=== PATIENT | female | born 1975 | race Caucasian/White ===

== ENCOUNTER 2025-08-13 08:19 | Emergency (ER) | payer OTHER, SELFPAY ==
[2025-08-13 08:42] VITALS: BP 104/55; PULSE 65; RESP 18; TEMP 36.4; O2SAT 100
--- NOTE | 2025-08-13 08:47 | ECG_ITS ---
Test Date: 2025-08-13 09:01:53 Measurements Intervals [place] Rate: 61 P: 42 ME: 126 QRS: 63 QRSD: 95 T: 50 QT: 433 QTc: 439 Interpretive Statements SINUS RHYTHM MODERATE T-WAVE ABNORMALITY, CONSIDER ANTERIOR ISCHEMIA BASELINE WANDER- III, AVF ABNORMAL ECG No previous ECG available for comparison Electronically Signed On 08-13-2025 09:59:35 CDT by Harmeet Tello D.O.
--- NOTE | 2025-08-13 09:01 | ED_ITS ---
HPI - Dizziness General Chief Complaint: Dizziness Stated Complaint: dizziness,fatigue,nausea Time Seen by Provider: 08/13/25 09:15 Source: patient and RN notes reviewed Mode of arrival: ambulatory Limitations: no limitations History of Present Illness HPI Narrative: 49-year-old female presents Express Care complaining of dizziness started this morning. Patient's symptoms started approximately 6 hours ago. Patient says she woke up to use the restroom when she knows she is very dizzy reporting she felt drunk and that the room was spinning. Patient denies any falls or injuries. Patient said she laid back down after taking some Sudafed without any relief. Patient said she had a previous episode years ago and is subsided on its own. Patient also reports a mild headache along nausea, with photophobia. Patient denies any chest pain, breathing problems, slurred speech, facial drooping, focal weakness, vomiting, diarrhea, abdominal pain, fevers, body aches, chills, upper respiratory symptoms, cough, or any other symptoms. Patient denies any significant past medical history are she states she does not see a doctor. Patient says she is a smoker. Related Data Allergies Allergy/AdvReac Type Severity Reaction Status Date / Time No Known Drug Allergies Allergy none Verified 08/13/25 10:01 Review of Systems Review of Systems: CONSTITUTIONAL: Denies fever, chills, or sweats. EYES: Denies visual changes, redness, or discharge. Positive for photophobia. ENT: Denies rhinorrhea, congestion, sore throat, or otalgia. CARDIOVASCULAR: Denies chest pain, palpitations, lightheadedness, orthopnea, or edema. Positive for dizziness. RESPIRATORY: Denies cough, difficulty breathing, or dyspnea. GASTROINTESTINAL: Denies abdominal pain, nausea, vomiting, or diarrhea. GENITOURINARY: Denies dysuria or hematuria. SKIN: Denies rash or itching. MUSCULOSKELETAL: Denies back pain, joint pain, or myalgia. NEUROLOGIC: Positive for headaches. Negative for loss of consciousness, seizures, focal weakness, slurred speech, facial droop, Numbness, or weakness. PSYCHIATRIC: Denies anxiety or depression. All other systems reviewed are negative, except as documented in HPI. [facility] Past Medical History Medical History (Updated 08/13/25 @ 16:21 by Basil Canales III, DO) No active medical problems Surgical History Surgical History (Updated 08/13/25 @ 11:51 by Mayela Farmer PA-C) H/O tubal ligation Social History Social History (Updated 08/13/25 @ 11:52 by Mayela Farmer PA-C) Smoking status: Current every day smoker Comments At the time of my signature, I reviewed and agree with the nursing past medical, surgical, social, and family history. There is no relevant family history pertinent to the patient complaint. Exam Narrative: GENERAL: This is a well-nourished, well-developed adult, in no apparent distress. They are non ill-appearing, nontoxic appearing. HEAD: normocephalic, atraumatic. EYES: Sclera clear/white. Conjunctiva normal. Vision is grossly intact. Extraocular movements intact. Pupils PERRLA. Vertical nystagmus present. EARS: External ears normal, auditory canals clear and without drainage, TMs normal without perforation. Hearing grossly intact. NOSE: External nose normal with no obvious nasal discharge, nasal turbinates without redness, no rhinorrhea. THROAT: Mucous membranes moist, posterior pharynx clear, without erythema or swelling. Uvula midline. NECK: Neck supple, non-tender without lymphadenopathy, masses or thyromegaly. CARDIOVASCULAR: Regular rate and rhythm without murmurs, gallops, or rubs. Normal S1-S2. RESPIRATORY: Clear to auscultation. Breath sounds equal bilaterally. No wheezes, rales, or rhonchi. SKIN: warm, Dry, intact with no suspicious lesions or rash, good texture and turgor. NEURO: awake, alert, and oriented to person, place and time. There were no obvious focal neurologic abnormalities. Cranial nerve 2-12 grossly intact. No pronator drift. No limb ataxia. No inattention or extinction. Arm strength 5/5 equal bilaterally. Spring Assembler strength 5/5 equal bilaterally. Leg strength 5/5 equal bilaterally. Normal dorsiflexion plantar flexion. Tongue is midline. No facial droop. Speech is clear. EXTREMITIES: No joint tenderness, effusion, or edema noted. BACK: Nontender without deformity. No CVA tenderness. Course Course Emergency Course: Portions of this record may have been created with voice recognition software Level of Care: Express Care Visit Vital Signs Vital signs: Vital Signs Temperature 97.5 F L 08/13/25 08:42 Pulse Rate 65 08/13/25 08:42 Respiratory Rate 18 08/13/25 08:42 Blood Pressure 104/55 L 08/13/25 08:42 Pulse Oximetry 100 08/13/25 08:42 Oxygen Delivery Room Air 08/13/25 08:42 Temperature 97.5 F L 08/13/25 08:42 Pulse Rate 65 08/13/25 08:42 Respiratory Rate 18 08/13/25 08:42 Blood Pressure 104/55 L 08/13/25 08:42 Pulse Oximetry 100 08/13/25 08:42 Oxygen Delivery Room Air 08/13/25 08:42 Reviewed Transfer Transfered to: [facility] Transportation: Other (Private vehicle, she declined EMS.) Transfer rationale: Dizziness, patient requires higher level care. Accepting physician: Mayela Farmer PA-C MDM - Dizziness MDM Narrative Medical decision making narrative: EKG sinus rhythm with T-wave abnormalities in V4 and V5. No ST elevation depression. EKG is abnormal. Patient is having no chest pain. Upon exam patient does have vertical nystagmus with eye tracking. Dizziness is elicited with position changes well. Patient has a headache and photophobia. Symptoms not appear to be vertigo. Patient does not see a doctor, she is a smoker. Given patient's symptoms, it is recommend the patient seek a higher level care and proceed immediately to the emergency department. Patient is agreeable at [facility]. Called over to [facility] and spoke to Mayela Farmer PA-C who is aware this patient accepted the patient for transfer. Offered patient EMS and she declined. Patient says her boyfriend will take her to the hospital via private vehicle. Patient's vital signs hemodynamically stable, patient is nontoxic appearing, No apparent distress. Differential Diagnosis Differential diagnosis: Likely benign paroxysmal positional vertigo, cerebrovascular accident, acute vestibular neuronitis, transient cerebral ischemia and other (ACS) ECG Data EKG #1: Attestation: I personally reviewed and interpreted this ECG as follows: ECG completion date: 08/13/25 ECG completion time: 09:01 Prior ECG tracings: not available for review EKG Interpretation: normal rate, sinus rhythm, no ectopy, no ST changes, normal QRS, normal QT and other (t wave abnormality in v3, v4) Critical Care Time Critical Care Time Critical Care Time: No Discharge Plan Discharge Patient Disposition: Acute Care [facility] Patient Language: Welsh Prescriptions: No Action meclizine 25 mg tablet 25 mg PO TID PRN (Reason: dizziness) Qty: 30 0RF Follow-up/Referrals: PHYSICIAN,SUPPORT MERCHANDISER [Primary Care Provider, Internal Medicine] Time of Disposition: 09:36
== END 2025-08-13 09:41 | disposition short-term general hospital (02) ==
LOC: EXPCOLL 08:37
DX: R42 Dizziness and giddiness (principal); H53.149 Visual discomfort, unspecified; R53.83 Other fatigue; F17.200 Nicotine dependence, unspecified, uncomplicated
CPT/HCPCS: 93005; 99213; G0463

== ENCOUNTER 2025-08-13 09:59 | Emergency (ER) | payer OTHER, SELFPAY ==
--- NOTE | ~2025-08-13 | CT_ITS ---
CT HEAD NON-CONTRAST Clinical History: Dizziness Comparison: None Technique: Unenhanced axial images skull base to vertex Coronal, sagittal reformats CT images acquired with automatic exposure control for dose reduction DLP: 530 mGy-cm Findings: Sulci, ventricles: Unremarkable. No intracerebral hemorrhage. No evidence acute territorial infarct. No mass effect, midline shift. Bony calvarium intact. Visualized paranasal sinuses: Clear. Mastoid air cells: Clear. IMPRESSION: 1. No acute intracranial findings. Reviewed, dictated and finalized at location R.
[2025-08-13 11:19] VITALS: BP 115/59; PULSE 56; RESP 16; TEMP 36.2; O2SAT 100
--- OUTSIDE RECORDS SUMMARY | 2025-08-13 11:19 | XMS_ITS | Clinical Summary ---
[place] [facility] [place] [address] Address [address] [place] [id number] Care Team Providers Care Information Systems Architect Name Role Phone Claudette Rivera NP Primary Care Provider [phone] Allergies No known active allergies Medications varenicline tartrate (CHANTIX) 1 mg tabletIndicatio ns:Smoking Cessation Take 0.5 tablets (0.5 mg total) by mouth daily for 3 days, THEN 0.5 tablets (0.5 mg total) 2 (two) times a day for 4 days, THEN 1 tablet (1 mg total) 2 (two) times a day. Take with full glass of water.. 60 tablet 1 07/24/2024 Active Active Problems Problem Noted Date Diagnosed Date Annual physical exam 01/09/2024 Assessment & Plan (01/09/2024 9:18 AM CDT): Pt is a 48-year-old female with no current health concerns. She reports she has not had a PCP since her son was born 21 years ago. Pt would like a referral to an OBGYN, an order for a mammogram, and an order for a colonoscopy. She had a telehealth visit during [facility] and had bloodwork drawn, but there was no follow-up visit and she does not have the results. Pt reports her sister has a genetic liver condition and is undergoing work-up for a liver transplant. -will order colonoscopy and mammogram -will order basic screening bloodwork -will provider referral to OBGYN Pt has a 20+ year history of smoking. She verbalizes a desire to quit smoking and is open to taking medication. -will order Chantix titration pack -educated pt on possible side effects Tobacco dependence due to cigarettes 01/09/2024 Assessment & Plan (01/09/2024 10:32 AM CDT): Pt is interested in smoking cessation. Discussed medication options including varenicline. Discussed potential SE's. Gave handout information on varenicline and how to use. I asked her to call me after 1 month of use with update and I can call in additional refills. Immunizations Immunization Administration Dates Next Due Influenza, Unspecified 01/09/2024(Deferr ed: Patient Refused),10/29/2022(Deferred: Patient Refused) MMR 06/17/1993 Surgical History Surgery Date Site/Laterality Comments TUBAL LIGATION Medical History Medical History Date Comments Smoking Family History Medical History Relation Name Comments Melanoma Father Diabetes Maternal Grandmother Melanoma Mother Breast cancer Mother's Sister Liver disease Sister Ovarian cancer Neg Hx Thyroid cancer Neg Hx Relation Name Status Comments Brother 1 Alive Brother 2 Father Alive Maternal Grandmother Mother Alive Mother's Sister Sister Alive Social History Tobacco Use Types Packs/Day Years Used Date Smoking Tobacco: Every Day Cigarettes Smokeless Tobacco: Never Tobacco Cessation:Ready to Q uit: Not Asked; Counseling Given: Not Answered AUDIT-C Answer Date Recorded Q1: How often do you have a drink containing alc ohol? 2-4 times a month 03/05/2024 Q2: How many drinks containi ng alcohol do you have on a typical day when you are drinking? 3 or 4 03/05/2024 Q3: How often do you have si x or more drinks on one occasion? Less than monthly 03/05/2024 PHQ-2 Answer Date Recorded PHQ-2 Total Score (If total score is 3 or more points, staff should administer the PHQ-9) 0 03/05/2024 Personal Safety Answer Date Recorded Getting School Help Needed Not on file 11/30 Comments Unknown Sex and Gender Information Value Date Recorded Sex Assigned at Not on file Legal Sex Female 8:57 PM [employer] Gender Identity Not on file Sexual Orientation Not on file Obstetrics History Para Term AB IAB SAB Ectopic Multiple Livin g Live Births 3 2 2 1 1 2 Date Outcome GA Total Labor Labor/2nd/3rd Weight Sex Type Anes PTL Alicia A1 A5 Name Clin Term M Vag-Spo nt Term M Vag-Spo nt IAB Last Filed Vital Signs Vital Sign Reading Time Taken Comments Blood Pressure 100/68 03/05/2024 2:53 PM CDT Pulse 87 01/09/2024 8:33 AM CDT Temperature 36.7 C (98.1 F) 01/09/2024 8:33 AM CDT Respiratory Rate - - Oxygen Saturation 98% 01/09/2024 8:33 AM CDT Inhaled Oxygen Concentration - - Weight 62.6 kg (138 lb) 03/05/2024 2:53 PM CDT Height 149.9 cm (4' 11) 06/28/2024 2:20 PM CDT Body Mass Index 27.87 03/05/2024 2:53 PM CDT Plan of Treatment Health Maintenance Due Date Last Done Comments Hepatitis C Screening 1975 DTaP/Tdap/Td Vaccine (1 - Tdap) 1986 Hepatitis B Screening 1993 Pneumococcal vaccine <65 (1 of 2 - PCV) 1994 Cervical Cancer Screening 03/05/2025 03/05/2024 Depression Screening 03/05/2025 03/05/2024, 01/09/20 24 Regular Well Visit/Exam 18-64 03/05/2025 03/05/2024, 01/09/2024 Influenza Vaccine (#1) 2025 Breast Cancer Screening-Mammogram 07/28/2025 024, 06/28/2024 Colon Cancer Screening-Colonoscopy 06/19/20342023 Procedures Procedure Name Priority Date/Time Associated Diagnosis Comments DIAGNOSTIC MAMMOGRAM BILATERAL W GARY Schedule Routine, Read Routine (OP Routine) 07/28/2024 3:00 PM CDT Abnormal mammogram HM COLONOSCOPY Routine 06/19/2024 9:45 AM CDT PAP AND HPV, REFLEX TO HPV GENOTYPES Routine 03/05/2024 3:48 PM CDT Encounter for well woman exam with routine gynecological exam from Last 3 Months or Most Recently Relevant to Health Maintenance Results * DIAGNOSTIC MAMMOGRAM BILATERAL W GARY (07/28/2024 3:00 PM CDT) Anatomical Region Laterality Modality Breast Bilateral Mammography 07/30/2024 3:57 PM CDT Impressions 07/30/2024 3:57 PM CDT No mammographic or sonographic findings to suggest malignancy. OVERALL FINAL ASSESSMENT: BI-RADS Category 2: Benign. RECOMMENDATION: Screening mammography as per ACR guidelines. The screening mammogram was June 28, and the next mammogram should BE approximately one year from that date. Electronically signed by: Melissa Knowles M.D. Narrative 07/30/2024 3:57 PM CDT EXAMINATION: BILATERAL DIGITAL DIAGNOSTIC MAMMOGRAM INCLUDING CAD AND BILATERAL DIGITAL BREAST TOMOSYNTHESIS; RIGHT BREAST SONOGRAM HISTORY: Additional imaging COMPARISON: June 28 TECHNIQUE: Full field digital mammographic views of BOTH breasts were performed, including computer aided detection (CAD) and BILATERAL digital breast tomosynthesis (DBT). Directed ultrasound evaluation of the RIGHT breast was performed. BREAST PARENCHYMAL COMPOSITION: The breasts are heterogeneously dense, which may obscure small masses. MAMMOGRAM FINDINGS: Calcifications in question on both sides are considered benign. No suspicious calcifications or suspicious masses are seen. There is no suspicious architectural distortion or skin thickening. SONOGRAM FINDINGS: As precautionary measure, sonography was performed through the lateral right breast. There is a small simple cyst at 11-12 o'clock. There is a benign-appearing lymph node at 9:00. No suspicious sonographic findings are seen. Claudette Rivera NP IMG MAMMO PROCEDURES Final Re sult * HM COLONOSCOPY (06/19/2024 9:45 AM CDT) Historical Provider HEALTH MAINTENANCE Final Result * (ABNORMAL) Pap and HPV, reflex to HPV Genotypes (03/05/2024 3:48 PM CDT) Clinical indication Comment [facility] - 01 Comment:NEGATIVE FOR INTRAEP ITHELIAL LESION OR MALIGNANCY. Specimen adequacy: Comment [facility] - 01 Comment: Satisfactory for evaluation. Endocervical and/or squamous metaplastic cells (endocervical component) are present. Clinician provided ICD10 Comment [facility] - 01 Comment:Z01.419 Performed by Comment [facility] - 01 Comment:Darrius Tinoco, Cyto technologist (ASCP) . . [facility] - 01 Note: Comment [facility] - 01 Comment: The Pap smear is a screening test designed to aid in the detection of premalignant and malignant conditions of the uterine cervix. It is not a diagnostic procedure and should not be used as the sole means of detecting cervical cancer. Both false-positive and false-negative reports do occur. Test methodology Comment [facility] - 01 Comment: This liquid based ThinPrep(R) pap test was screened with the use of an image guided system. HPV Aptima Positive(A ) Negative [facility] 02 Comment: This nucleic acid amplification test detects fourteen high-risk HPV types (16,18,31,33,35,39,45,51,52,56,58,59,66,68) without differentiation. HPV Genotype Reflex Comment [facility] - 01 Comment:Criteria met, see HP V Genotype results. Thin prep 03/05/2024 3:48 PM CDT 03/06/2024 Narrative [facility] - 03/12/2024 2:08 AM CDT Performed at: 01 - [facility] [id number] Reproducer: Christa Alvarez MD, Phone: [phone] Performed at: 02 - [facility] [id number] Reproducer: Christa Alvarez MD, Phone: [phone] Specimen Comment: No. of containers..01 ThinPrep Vial Nelly Jordan NP LAB CYTOLOGY ORDERABLES Final Re [facility] - 01 [facility] 02 from Last 3 Months or Most Recently Relevant to Health Maintenance Care Teams Information Systems Architect Relationship Specialty Start Date End Date Claudette Rivera NP [address] [facility] [address] [place] [address] PCP - General Family Medicine 04/09/25
--- OUTSIDE RECORDS SUMMARY | 2025-08-13 11:19 | XMS_ITS | Data Portability ---
Author Organization [facility], [id number] Address [address] [place] [address] Assessment No assessment recorded. Plan of Treatment Reminders Order Date Submit Date Provider Last Modified By Organization Details Last Modified Time Details Appointments ANNUAL- EST 15 2025 07:45A M FREDA MOORE WHNP Not available Not available Not available Lab surgica l patholo gy study 2024 025 BREE [facility] ([facility]), [address] , [address], [place], [address], 04/28/2025 15:07:18 pregnan cy test, urine 2024 025 [email or web address] [id number] [facility] [address], [address], [place], [address], 04/22/2025 11:28:47 CBC w/ auto diff 2024 025 [facility], [address], [place], [address], 03/25/2025 12:32:49 CMP, serum or plasma 2024 025 [employer] [employer] [facility], [address], [place], [address], 03/25/2025 12:32:49 lipid panel, serum 2024 025 [facility], [address], [address], [place], [address], 03/25/2025 12:32:50 HbA1c (hemogl obin A1c), blood 2024 025 [facility], [address], [address], [place], [address], 03/25/2025 12:32:50 vitamin B12, serum 2024 025 [facility], [address], [address], [place], [address], 03/25/2025 12:32:50 TSH, serum or plasma 2024 025 [facility] [employer] [facility], [address], [address], [place], [address], 03/25/2025 12:32:50 T4, free, serum 2024 025 [facility], [address], [address], [place], [address], 03/25/2025 12:32:50 vitamin D, 25-hydr oxy, total, serum 2024 025 [facility] [employer] [facility], [address], [address], [place], [address], 03/25/2025 12:32:50 pap, LB 2024 025 [facility] ([facility]), [address] , [address], [place], [address], 03/24/2025 17:02:52 HPV DNA, high-ri sk - Reflex to genotyp ing if HPV Detecte d 2024 025 [facility] ([facility]), [address] , [address], [place], [address], 03/24/2025 17:02:52 Referral None recorde d. Procedures None recorde d. Surgeries None recorde d. Imaging MAMMO, screeni ng, digital , bilater al 2024 025 [email or web address] Not available 04/02/2025 12:01:25 Medication Orders estradi ol 0.01% (0.1 mg/gram ) vaginal cream 2024 025 [facility], [address] [place], [place], [id number], 03/18/2025 12:08:53 estradi ol 0.01% (0.1 mg/gram ) vaginal cream 2024 025 [facility]67175, [address], [place], [id number], 03/18/2025 12:09:03 fluoxet ine 10 mg tablet 2024 025 [facility]49[facility], [address] [place], [place], [id number], 03/18/2025 12:08:54 Patient TargetsNo targets recorded. Patient Instructions Encounter Date Encounter Id Patient Instructions Last Modified By Organization Details Last Modified Time 04/22/2025 [id number] colposcopy: what to expect at home roxie Not available 04/22/2025 11:28:47 post colposcopy information [email or web address] Not available 04/22/2025 11:28:47 Reason for Referral None Reported. Results Created Date Observation Date Name Description Value Unit Range Abnormal Flag Note LastModifiedBy Organization Detail LastModifiedTime 03/18/2003/24/2025 PAP TEST THIN PREP Pap test thin prep ATYPIC AL SQUAMO US CELLS OF UNDETE RMINED SIGNIF ICANCE abnormal ACCES JULIANNE #: [id number] Sourc e: Cervi bushra/E ndoce rvica l LMP: 2020 Date Taken : 03/18 Speci men Type: ThinP rep Vial Date Repor daniel: 2024 Clini bushra Data: Last Pap: nl, HPV + () Cytot ech: Rosana Doyle, CT( CP) Heriberto lea M.D. elect ricci chu selena d 2024 at 2:34 PM Speci men Adequ acy: Satis facto ry for evalu ation Endoc ervic al/tr ansfo rmati on zone compo nent prese nt Gener al Categ oriza tion: EPITH ELIAL CELL ABNOR MALIT Y: SEE INTER PRETA TION/ RESUL T Inter preta tion/ Resul t: ATYPI BUSHRA SQUAM OUS CELLS OF UNDET ERMIN ED SIGNI FICAN CE This speci men has been trudy zed by the ThinP rep Imagi ng Syste m, an inter activ e compu ter syste m which fernando ts the lab in the scree sandy of ThinP rep Pap Test slide sVannessa abreu imagi ng, the slide was revie wed by a Cytot echno logis t and/o r Patho logis t. D N A A S S A Y S R E P O R T TEST NAME RESUL TS ----- ---- ----- -- HPV High Risk Scree n (TMA) ThinP rep Vial The human papil lomav irus (HPV) High Risk Scree n is an FDA-a pprov ed in-vi tro ampli fied nucle ic acid test for the quali tativ e detec tion of E6/E7 viral mRNA. Resul ts shoul d be corre lated with patie nt prese ntati on, histo ry, cervi bushra cytol ogy and other clini bushra and labor atory findi ngs. See https ://ww [employer]/s ites/ deftello lt/fi les/2 018-0 3/AW- 50511 _002_ 01.pd f for furth er infor matio n. Test perfo rmed by [facility] d/b/a PathG roup, [address], [place] [address] , Rani Aleman ra, DO, [facility], CLIA[facility] [id number] HPV High Risk *HPV DETEC DANIEL (TYPE S 16, 18, 31, 33, 35, 39, 45, 51, 52, 56, 58, 59, 66, 68) *HPV: The human papil lomav irus (HPV) High Risk Kimi nash is an FDA-a pprov ed in-vi tro ampli fied nucle ic acid test for the quali tativ e detec tion of E6/E7 viral mRNA. [facility] selvin vazquez be corre lated with giacomo slaughter prese ntati on, histo ry, cervi bushra cytol ogy and other clini bushra and labor atory findi ngs. See https ://[facility]/s ites/ deftello lt/fi les/2 018-0 3/AW- 12474 _002_ 01.pd f for julian rosalinda larsonr abner n. Test perfo rmed by [facility] Lites[facility]ite d/b/a Path rou, [address], [place] [address] , Rani Aleman ra, DO, [facility]or[facility], CLIA# [id number] End of Repor t Techn ical servi marielena provi ded by [facility] iatClone Patho Litesprite, d/b/a PathTVA Medical rou, [address] [place] [address] Shazia sigala MD, Labor ator [facility]. Case revie wed and diagn osis rende red at [facility] iatClone Patho Litesprite, d/b/a PathG rou, [address], [facility] [place] [address] Angel Pastor MD, [facility]orThe [facility] Foundation [facility]. CONFI DENTI AL Not Available [facility] ([facility]) [address], [place], [address], 03/24/2025 17:02:52 03/18/20 25 03/20/2025 HPV HIGH RISK SCREE N (TMA) HPV high risk DETECT ED abnormal Not Available [facility]) [address], [place], [address], 03/24/2025 17:02:52 04/22/20 25 04/28/2025 SURGI BUSHRA PATHO LOGY surgical pathology View Report ACCES JULIANNE #: [id number] Patie nt Name: CRISTIANA CROCKETT Age-S ex-DO B: 49y F [birth year] Proce dure Date: 04/22 32 Acces julianne Date: 2024 Pt Acct# : Repor t Date: 025 Locat ion: OFFIC E Physi prakash( s): Rosana juan, RECYCLABLE MATERIALS SORTER P A T H O L O G Y R E P O R T DIAGN OSIS: 1. Cervi x, 9-o'c lock, biops y: Fragm ents of squam ous mucos a showi ng infla mmati on and react noa schneider es. No intra epith elial lesio n or malig timur ident ified . 2. Cervi x, 1-o'c lock, biops y: Fragm ents of squam ous epith elium showi ng mild infla mmati on and react noa schneider es. No intra epith elial lesio n or malig timur ident ified . 3. Endoc ervix , curet tage: Mucus with fragm ents of squam ous and endoc ervic al epith elium . No intra epith elial lesio n or malig timur ident ified . Heriberto lea MD elect ricci vazquez 04/28 02:04 PM Gross Descr iptio n: Cristiana Crockett. 1. Cervi bushra biops y at 9-o'c lock. Recei luis in forma leonard is a white -yell ow aggre gate of soft tissu e and mucin ous mater ial measu ring 2.5 x 0.3 x less than 0.1 cm. The speci men is place d in a biops y bag and entir dayna submi tted in [facility] tte 1A, M/1. 2. Cervi bushra biops y at 1-o'c lock. Recei luis in forma leonard is a white -yell ow aggre gate of soft tissu e measu ring 0.5 x 0.2 x less than 0.1 cm. The speci men is place d in a biops y and entir dayna submi tted in [facility] tte 2A, M/1. 3. ECC. Recei ulis in forma leonard is a soft ECC brush with a white -yell ow aggre gate of soft tissu e and mucin ous mater ial measu ring 2.3 x 0.2 x 0.1 cm. The speci men is place d in a biops y bag and entir dayna submi tted in [facility] tte 3A, M/1. (GB8) (OV1, mbj) Gross ing servi marielena provi ded by Assoc iated Patho logis ts, [facility], d/b/a PathG roup [address] [place] [place], [address] Shazia Uriostegui. Colette sigala MD, [facility]. Micro scopi c Descr iptio n: Micro scopi c exami natio n is perfo rmed. Clini bushra Histo ry: Atypi bushra squam ous cells of undet ermin ed signi fican ce on cytol ogic smear of cervi x (ASC- US) (R87. 610), Cervi bushra high risk human papil lomav irus (HPV) DNA test posit noa (R87. 810) Speci men List: 1. Cervi bushra biops y 9 o'franck ck 2. Cervi bushra biops y 1 o'franck ck 3. ECC with brush Unles s speci fied other lo above , the quali ty of the H and E and any other stain s perfo rmed is satis facto ry, and any inter nal or exter nal posit noa and negat noa contr ols react appro priat dayna. End of Repor t Techn ical servi marielena provi ded by [facility] iated Patho logis [employer], hint, d/b/a PathLiibookwilfredo, [address] , [place] [address] Shazia sigala MD, Labor atory Direc tor. Case revie wed and diagn osis rende red at [facility] iated Patho logis [employer], hint, d/b/a Path rouwilfredo, [address], [address], [place] [address] Lila bhakta MD, Labor atory Direc tor. CONFI DENTI AL Not Available [facility] ([facility]) [address], [place], [address], 04/28/2025 15:07:17 04/22/20 25 04/22/2025 pregn yulissa test, urine HCG negati ve Not Available [id number], [place], [address], 04/22/2025 08:54:36 Result Notes None recorded. Problems Name Problem SNOMED Code Status Onset Date Resolution Date Notes Provider Name and Address Organization Details Recorded Time Genitourina ry syndrome of menopause 3088986841348 9104 Active 2024 FREDA IVERSON [address], [place], [place], [address], [facility] 5 12:05:29 [place] 790909993 Active 2024 FREDA IVERSON [address], [place], [address], [facility] 5 12:05:38 Menopausal symptom 45437399 Active 2024 FREDA IVERSON [address], [place], [address], [facility] 12:09:02 Fatigue 56794539 Active 2024 FREDA MOORE ZAYRA [address], [place], [place], [address], [facility] 12:12:06 Problem Notes None recorded. Procedures Surgical History Date Name Laterality Status Provider Name and Address Organization Details Recorded Time 04/22/20 25 Colposcopy (vaginal & cervical) ([facility]) completed JASVIR MAGALLANES CNM [address], [place], [address], [facility] 04/22/2025 11:27:20 06/28/20 24 Date of Last Mammogram completed Debora Saini(TERM) [facility] 03/18/2025 09:08:08 06/19/20 24 Date of Last Colonoscopy completed Debora Saini(TERM) [facility] 03/18/2025 09:12:35 03/05/20 24 Date of Last Pap Smear completed Debora Saini(TERM) [facility] 03/18/2025 09:11:04 Tubal Ligation completed Debora Ketaury(TERM) [facility] 03/18/2025 09:05:24 Colonoscopy completed Debora Parveen(TERM) [facility] 03/18/2025 09:05:24 Imaging Results None recorded. Procedure Notes None recorded. Medical Equipment None Reported. Allergies No known drug allergies Medications Name Sig Start Date Stop Date Status Note LastModified by Organization Details LastModified Time fluoxetine 10 mg tablet TAKE 1 TABLET BY MOUTH EVERY DAY 2024 active Not Available Not Available Not Avai lable estradiol 0.01% (0.1 mg/gram) vaginal cream INSERT 1 GRAM VAGINALLY EVERY NIGHT FOR 2 WEEKS THEN USE VAGINALLY 2 TIMES A WEEK THEREAFTER active Not Available Not Available N ot Available Vitals Date Recorded Body weight Body mass index (BMI) Body height Provider Name and Address Organization Details Last Updated DateTime 03/18/2025 88624.68 g 24.4 kg/m2 149.86 cm Debora Saini(TERM) [facility] 03/18/2025 09:07:10 Date Recorded Body height Body mass index (BMI) Body weight Systolic And Diastolic Provider Name and Address Organization Details Last Updated DateTime 04/22/2025 149.86 cm 24.3 kg/m2 96122.52 g 110/62 mm[Hg] Jacy Espinal [facility] 04/22/2025 09:18:34 Social History Question Answer Notes LastModified by House Party Details LastModified Time Tobacco Smoking Status Current Every Day Smoker Debora Saini(TERM) [facility], [facility] 03/18/2025 09:05:17 Do You Have An Advance Directive? No Information not available 03/18/2025 If You Are , What Was Your Level Of Alcohol Consumption Prior To ? Occasional Information not available 03/18/2025 What Is Your Level Of Caffeine Consumption? Moderate Information not available 03/18/2025 What Type Of Diet Are You Following? REGULAR Information not available 03/18/2025 At What Age Did You Start Smoking Tobacco? 22 Information not available 03/18/2025 How Much Tobacco Do You Smoke? 0.25 PPD Information not available 03/18/2025 Sex: Unknown Functional Status Question Answer Note LastModified by [email or web address] ion Details LastModified Time What is your level of alcohol consumption? Occasional Information not available 03/18/2025 Are you currently employed? Yes Information not available 03/18/2025 Mental Status None recorded. Family History Relationship Description Onset Age of this Age Resolved Age Notes LastModified by Organization Details LastModified Time Maternal Grandmother Heart disease [email or web address] Not available 04/22 08:54:16 Maternal Grandmother Diabetes mellitus [email or web address] Not available 04/22 08:54:16 Maternal Grandfather Heart disease Not available 04/22 08:54:16 Medical History No medical history recorded. Gynecological History Statement/Question Response History of Fibroids N Date of Last Mammogram 06/28/2024 Date of LMP 10/29/2020 Current Control Method: Menopause Cologuard Testing N History of Recurrent Ovarian Cysts N Age at first intercourse 17 If Post Menopausal, Age at Menopause 45 HPV Vaccine Not Completed Date of Last Colonoscopy 06/19/2024 Date of Last Diabetes Screening 10/29/19 24 Date of Last HPV Test 03/05/2024 Date of Last Cholesterol Screening 10/29 History of PCOS N History of Infertility N History of Cervical Dysplasia N History of Vulvar Dysplasia N Current Control Method Menopause Age at Menarche 16 History of Endometriosis N Frequency of Cycle (Q days) 30 Sexually Active? Y History of Dysmenorrhea N Menses Monthly N Date of Last Pap Smear 03/05/2024 Sexual Problems? Y History of Sexually Transmitted Infectio n N Obstetrics History GPAL:G 3 P 2 0 1 2 Type Value Full Term 2 Spontaneous 1 Living 2 Total 3 Past Encounters Encounter ID Performer Location Encounter Start Date Encounter Closed Date Diagnosis/Indication Diagnosis SNOMED-CT Code Diagnosis ICD10 Code Diagnosis IMO Codes Diagnosis Note [id number] AN[address]IE TORO [address], [place] [id number] [facility] [address] [place] [address] 03/18/2025 08:50:13 03/18/2025 09:52:40 Screening mammography 88561124 Z12.31 [id number] -call to schedule mammogram Screening for malignant neoplasm of cervix 087839358 Z12.4 03/18/25-pa p today Human carly lloma virus screening 463178824 Z11.51 Genitourin harshad syndrome of menopause 7003424707 5876141 N95.8 1517712379 03/18/25-st art vaginal estradiol cream as directed [place] 953056220 R23.2 [id number] 03/18/25-st art fluoxetine for non-hormon al tx of hot flashes-if no improvemen t-will stop rx Gynecologi c examination 07382441 Z01.352 [id number] 03/18/25-salgado ve labs done-f/u 1 year for annual LENS ENGRAVER exam Fatigue 09104385 R53.83 [id number] 03/18/25-[place]alg[place] ve labs done Depression screening 171 785060 Z13.31 [id number] 03/18/25-sc ore 10-denies depression Menopausal symptom 75378 002 N95.1 [id number] 03/18/25-wi schedule telehealth visit after lab results are back to talk about MHT options-de nies hx of migraines, liver disease, personal/f amily hx of blood clots/bloo d clotting disorders, elevated cholestero l, HTN/CAD, breast cancer, or CVA/TIA. [id number]IE TOR[address], [place] [id number] [place] [address] 04/22/2025 08:38:24 04/22/2025 09:36:28 Atypical squamous cells of undetermined significance on cervical Papanicolaou smear 008583802 R87.610 R87.810 [id number] Health Concerns Section Related Observation LastModified by Organization Detai ls LastModified Time None Recorded Concern Status LastModified by Organization Details LastModified Time None Recorded Advance Directives Directive N: Payers Insurance Date Sequence Insurance Name Policy Number Policy Blankenship Covered Member ID Blankenship Member ID Guarantor Name 05/14/2025 1 [facility] (O) [id number] Kaela Hsu [id number] Kaela Hsu Notes Date Note Type Note Provider Name and Address Organization Details Recorded Time 03/18/2025 text/html [facility] Annual Well-Women Visit Age 40-64Reported by PatientPreventive Health ScreeningsFor relevant family history, patient reportshas a family history of breast cancer (maternal aunt-dx 40s). For last pap smear, patient reportslast hpv test was positivebut reportslast pap smear was normal(03/18/25 hrhpv + last year but genotyping was negative). For current medical history, patient reportsreviewed and documented. For mammography, patient reportsdue.Contracepti onFor contraceptive method, patient reportsn/a.Sexually ActiveFor sexually active, patient reportshas decreased libidobut reportsyes: same partner.STI ScreenFor sti screen, patient reportsdeclines sti testing.Menstrual History/SymptomsFor menopausal symptoms, patient reportsnight sweats,hot flashes,vaginal dryness,insomnia, andmood swings. For hrt, patient reportsnot currently on hrt.Genito-urinary SymptomsFor vagina, patient reportsvaginal dryness.5/21/25 c/o feeling sluggish, severe fatigue, brain fog, muscle aches, joint pain, severe night sweats-multiple times every night, hot flashes. denies hx of migraines, liver disease, family/personal hx of blood clotting disorders, high cholesterol, HTN/CAD, breast ca, CVA/TIA. would like to do something to help with menopausal sx. LMP was 4 years ago. last year she did have some spotting for 2 days and was seen by a different practice-workup for AUB was normal per pt. was having these sx last year also but it has just been getting worse for the last 4 years. has changed her diet and started exercising to help sx-has lost 27lbs, cut out sugar, caffeine. has decreased smoking from 1+ppd to 1/4ppd. was told nicotine makes hot flashes worse so that's why she's trying to stop. -flori [facility] [address], [place], [address], [facility] 03/18/2025 12:22:54 04/22/2025 text/html Patient is here for colposcopy. ASUS/HPV+ untyped Patient states last week she started having yeast infection symptoms, she started using an over the counter monistat 7. The burning went away, but she stopped using the estrogen and states she probably will not start using it again. A family member told her the estrogen is what caused it. JASVIR MAGALLANES [facility] [address], [place], [address], [facility] 04/22/2025 11:28:51 OBGyn Episode No OBEpisode recorded.
--- NOTE | 2025-08-13 11:49 | ED_ITS ---
HPI - Dizziness General Chief Complaint: Dizziness <Mayela Farmer PA-C - Last Filed: 08/13/25 19:14> Stated Complaint: woke up dizzy around 0300 <Mayela Farmer PA-C - Last Filed: 08/13/25 19:14> Time Seen by Provider: 08/13/25 11:49 <Mayela Farmer PA-C - Last Filed: 08/13/25 19:14> Focused HPI: This is a 49 year old female that presents to the ER for dizziness. Reports she woke up at about 3:00AM with this. Reports room spinning dizziness. Reports one prior episode 2 years ago. Denies chest pain, shortness of breath. GENERAL: Well-appearing, well-nourished, and in no acute distress. HEAD: Normocephalic, atraumatic. CHEST: Clear to auscultation. ?No respiratory distress. HEART: Regular rate and rhythm.? NEURO: ?Alert and oriented x3. Patient screened in triage and initial orders placed.? ?Additional care and disposition to be based upon?diagnostic testing and treatment. <Mayela Farmer PA-C - Last Filed: 08/13/25 19:14> History of Present Illness HPI Narrative: asd per MSE. Pt says her dizziness has now resolved. <Basil Canales III, DO - Last Filed: 08/13/25 16:23> Related Data Allergies/Adverse Reactions: Allergies Allergy/AdvReac Type Severity Reaction Status Date / Time No Known Drug Allergies Allergy none Verified 08/13/25 10:01 <Mayela Farmer PA-C - Last Filed: 08/13/25 19:14> Review of Systems 2 Review of Systems: All systems reviewed & are unremarkable except as noted in HPI and below <Basil Canales III, DO - Last Filed: 08/13/25 16:23> PMFSH Past Medical History Medical History: Medical History (Updated 08/13/25 @ 19:14 by Mayela Farmer PA-C) No active medical problems <Mayela Farmer PA-C - Last Filed: 08/13/25 19:14> Surgical History Surgical History: Surgical History (Updated 08/13/25 @ 11:51 by Mayela Farmer PA-C) H/O tubal ligation <Mayela Farmer PA-C - Last Filed: 08/13/25 19:14> Social History Social History: Social History (Updated 08/13/25 @ 11:52 by Mayela Farmer PA-C) Smoking status: Current every day smoker <Mayela Farmer PA-C - Last Filed: 08/13/25 19:14> Exam 2 Const: General: healthy appearing <Basil David Canales III, DO - Last Filed: 08/13/25 16:23> Nutritional Appearance: well nourished <Basil David Canales III, DO - Last Filed: 08/13/25 16:23> Orientation/consciousness: patient oriented x3 <Basil David Canales III, DO - Last Filed: 08/13/25 16:23> Limitations: no limitations <Basil David Canales III, DO - Last Filed: 08/13/25 16:23> Eyes: EOM: EOMs intact bilaterally <Basil David Canales III, DO - Last Filed: 08/13/25 16:23> Chest: Chest palpation & inspection: normal inspection of the chest < Basil David Canales III, DO - Last Filed: 08/13/25 16:23> Resp: Effort & Inspection: normal respiratory effort <Basil David Canales III, DO - Last Filed: 08/13/25 16:23> Auscultation: clear to auscultation bilaterally <Basil David Canales III, DO - Last Filed: 08/13/25 16:23> Cardio: Rate: regular rate <Basil David Canales III, DO - Last Filed: 08/13/25 16:23> Rhythm: regular rhythm <Basil David Canales III, DO - Last Filed: 08/13/25 16:23> GI: GI Palp: Yes Soft to palpation and No Tenderness to palpation present (GI) <Basil David Canales III, DO - Last Filed: 08/13/25 16:23> Auscultation: normal bowel sounds <Basil David Canales III, DO - Last Filed: 08/13/25 16:23> Skin: General skin exam: normal color <Basil David Canales III, DO - Last Filed: 08/13/25 16:23> Rashes: no rashes <Basil David Canales III, DO - Last Filed: 08/13/25 16:23> Wounds: no wounds <Basil David Canales III, DO - Last Filed: 08/13/25 16:23> Neuro: General: patient oriented x3, moves all extremities, no meningeal signs, no focal motor deficits and CN's II-XI intact bilaterally <Basil David Canales III, DO - Last Filed: 08/13/25 16:23> Cranial nerves: Yes Nystagmus present <Basil David Canales III, DO - Last Filed: 08/13/25 16:23> Speech: normal speech <Basil David Canales III, DO - Last Filed: 08/13/25 16:23> Extrem: General: normal to inspection and no clubbing, cyanosis or edema < Basil David Canales III, DO - Last Filed: 08/13/25 16:23> Psych: Mental Status: mental status grossly normal <Basil David Canales III, DO - Last Filed: 08/13/25 16:23> Affect: normal affect <Basil David Canales III, DO - Last Filed: 08/13/25 16:23> Attitude: cooperative <Basil David Canales III, DO - Last Filed: 08/13/25 16:23> Course Vital Signs Vital signs: Vital Signs Temperature 97.1 F L 08/13/25 11:19 Pulse Rate 56 L 08/13/25 11:19 Respiratory Rate 16 08/13/25 11:19 Blood Pressure 115/59 L 08/13/25 11:19 Pulse Oximetry 100 08/13/25 11:19 Oxygen Delivery Room Air 08/13/25 11:19 Temperature 97.1 F L 08/13/25 11:19 Pulse Rate 56 L 08/13/25 11:19 Respiratory Rate 16 08/13/25 11:19 Blood Pressure 115/59 L 08/13/25 11:19 Pulse Oximetry 100 08/13/25 11:19 Oxygen Delivery Room Air 08/13/25 11:19 <Mayela Farmer PA-C - Last Filed: 08/13/25 19:14> Vital Signs Temperature 97.1 F L 08/13/25 11:19 Pulse Rate 56 L 08/13/25 11:19 Respiratory Rate 16 08/13/25 11:19 Blood Pressure 115/59 L 08/13/25 11:19 Pulse Oximetry 100 08/13/25 11:19 Oxygen Delivery Room Air 08/13/25 11:19 Temperature 97.1 F L 08/13/25 11:19 Pulse Rate 56 L 08/13/25 11:19 Respiratory Rate 16 08/13/25 11:19 Blood Pressure 115/59 L 08/13/25 11:19 Pulse Oximetry 100 08/13/25 11:19 Oxygen Delivery Room Air 08/13/25 11:19 <Basil Hernandez Canales III, DO - Last Filed: 08/13/25 16:23> MDM - Dizziness MDM Narrative Medical decision making narrative: seems like bpv and pt now improved without treatment. discussed with pt and ct does not seem necessary. will check labs and reassess. trop is neg. If ok home on antivert and zofran. discussed with pt and wants to go home rather than hospital observation. will give cardiology follow up. home on antivert. < Basil Mandujanover III, DO - Last Filed: 08/13/25 16:23> Differential Diagnosis Differential diagnosis: Likely benign paroxysmal positional vertigo, orthostatic hypotension and acute vestibular neuronitis <Basil Hernandez Canales III, DO - Last Filed: 08/13/25 16:23> Lab Data Attestation: I reviewed the patient's lab results. <Basil Canales III, DO - Last Filed: 08/13/25 16:23> Result diagrams: 08/13/25 14:02 08/13/25 14:02 <Mayela Farmer PA-C - Last Filed: 08/13/25 19:14> Labs: Lab Results 08/13/25 Range/Units 14:02 WBC 6.5 (4.5-10.0) K/mm3 RBC 4.38 (4.2-5.4) M/mm3 Hgb 12.9 (12.0-15.0) g/dL Hct 40.2 (37.0-47.0) % MCV 91.8 (80-100) fl MCH 29.5 (26-34) pg MCHC 32.1 (32-36) g/dl RDW 12.6 (11.5-14.5) % Plt Count 233 (150-375) k/mm3 MPV 9.3 (7.4-10.4) fl Immature Gran % (Auto) 0.5 (0-0.5) % Neut % (Auto) 60.1 (45.5-73.1) % Lymph % (Auto) 29.3 (18.3-44.2) % Hood % (Auto) 5.0 (2.6-8.5) % Eos % (Auto) 4.2 (0-4.4) % Baso % (Auto) 0.9 (0.2-1.2) % Lymph # (Auto) 1.89 (0.9-3.2) K/mm3 Hood # (Auto) 0.3 (0.1-0.6) K/mm3 Eos # (Auto) 0.3 (0-0.3) K/mm3 Baso # (Auto) 0.1 (0.0-0.1) K/mm3 Abs Immat Gran (auto) 0.03 (0.00-0.031) K/mm3 Absolute Neuts (auto) 3.9 (1.3-6.7) K/mm3 Absolute Nucleated RBC 0.000 (0.0-0.012) K/mm3 Nucleated RBC % 0.0 (0.0-0.2) % Sodium 139 (137-145) mmol/L Potassium 4.0 (3.4-5.0) mmol/L Chloride 108 H (98-107) mmol/L Carbon Dioxide 26 (22-30) mmol/L Anion Gap 5 (4-12) mmol/L BUN 9 (7-17) mg/dL Creatinine 0.54 L (0.7-1.0) mg/dL Estim Creat Clear Calc Not Reportable Estimated GFR > 60 (59 - ) Glucose 91 (65-110) mg/dL Calcium 9.5 (8.4-10.2) mg/dL Total Bilirubin 0.3 (0.2-1.3) mg/dL AST 22 (14-36) U/L ALT 16 (6-35) U/L Alkaline Phosphatase 48 (38-126) U/L Troponin I < 0.012 (0.000-0.034) ng/mL Total Protein 7.2 (6.3-8.2) g/dL Albumin 4.2 (3.5-5.1) g/dL <Mayela Farmer PA-C - Last Filed: 08/13/25 19:14> Lab Results 08/13/25 Range/Units 14:02 WBC 6.5 (4.5-10.0) K/mm3 RBC 4.38 (4.2-5.4) M/mm3 Hgb 12.9 (12.0-15.0) g/dL Hct 40.2 (37.0-47.0) % MCV 91.8 (80-100) fl MCH 29.5 (26-34) pg MCHC 32.1 (32-36) g/dl RDW 12.6 (11.5-14.5) % Plt Count 233 (150-375) k/mm3 MPV 9.3 (7.4-10.4) fl Immature Gran % (Auto) 0.5 (0-0.5) % Neut % (Auto) 60.1 (45.5-73.1) % Lymph % (Auto) 29.3 (18.3-44.2) % Hood % (Auto) 5.0 (2.6-8.5) % Eos % (Auto) 4.2 (0-4.4) % Baso % (Auto) 0.9 (0.2-1.2) % Lymph # (Auto) 1.89 (0.9-3.2) K/mm3 Hood # (Auto) 0.3 (0.1-0.6) K/mm3 Eos # (Auto) 0.3 (0-0.3) K/mm3 Baso # (Auto) 0.1 (0.0-0.1) K/mm3 Abs Immat Gran (auto) 0.03 (0.00-0.031) K/mm3 Absolute Neuts (auto) 3.9 (1.3-6.7) K/mm3 Absolute Nucleated RBC 0.000 (0.0-0.012) K/mm3 Nucleated RBC % 0.0 (0.0-0.2) % Sodium 139 (137-145) mmol/L Potassium 4.0 (3.4-5.0) mmol/L Chloride 108 H (98-107) mmol/L Carbon Dioxide 26 (22-30) mmol/L Anion Gap 5 (4-12) mmol/L BUN 9 (7-17) mg/dL Creatinine 0.54 L (0.7-1.0) mg/dL Estim Creat Clear Calc Not Reportable Estimated GFR > 60 (59 - ) Glucose 91 (65-110) mg/dL Calcium 9.5 (8.4-10.2) mg/dL Total Bilirubin 0.3 (0.2-1.3) mg/dL AST 22 (14-36) U/L ALT 16 (6-35) U/L Alkaline Phosphatase 48 (38-126) U/L Troponin I < 0.012 (0.000-0.034) ng/mL Total Protein 7.2 (6.3-8.2) g/dL Albumin 4.2 (3.5-5.1) g/dL <Basil Hernandez Canales III, DO - Last Filed: 08/13/25 16:23> ECG Data EKG #1: Interpretation: sinus claude rate 57 t wave inversion in anterior leads no old ekg to compare, short pr interval not present on earlier ekg <Basil Canales III, DO - Last Filed: 08/13/25 16:23> Critical Care Time Critical Care Time Critical Care Time: No <Mayela Farmer PA-C - Last Filed: 08/13/25 19:14> Discharge Plan Discharge Clinical Impression: Benign paroxysmal positional vertigo Qualifiers: Laterality: unspecified laterality Qualified Code(s): H81.10 - Benign paroxysmal vertigo, unspecified ear <JILL Asher Last Filed: 08/13/25 19:14> Patient Disposition: Home <JILL Asher Last Filed: 08/13/25 19:14> Condition: Improved <JILL Asher Last Filed: 08/13/25 19:14> Instructions: Antibiotic Form, Benign Paroxysmal Positional Vertigo (ED) <JILL Asher Last Filed: 08/13/25 19:14> Patient Language: Thai <JILL Asher Last Filed: 08/13/25 19:14> Prescriptions: New meclizine 25 mg tablet 25 mg PO TID PRN (Reason: dizziness) Qty: 30 0RF <Mayela Farmer PA-C - Last Filed: 08/13/25 19:14> Follow-up/Referrals: Tello Persaud MD [Physician, Cardiology] PHYSICIAN,TRANSPORTATION CLERK [Primary Care Provider, Internal Medicine] <Mayela Farmer PA-C - Last Filed: 08/13/25 19:14>
--- NOTE | 2025-08-13 11:50 | ECG_ITS ---
Test Date: 2025-08-13 13:57:50 Measurements Intervals [place] Rate: 57 P: 37 NV: 108 QRS: 55 QRSD: 99 T: 50 QT: 438 QTc: 428 Interpretive Statements SINUS BRADYCARDIA WITH SHORT NV INTERVAL MODERATE ST-T WAVE ABNORMALITY IN ANTERIOR LEADS- CONSIDER ISCHEMIA BASELINE ARTIFACT- I, II, AVR, AVL, AVF, V1-V6 ABNORMAL ECG Compared to ECG 08/13/2025 09:01:53 Short NV interval now present Electronically Signed On 08-13-2025 14:39:18 CDT by Harmeet Tello D.O.
[2025-08-13] MEDS: SODIUM CHLORIDE 0.9% IV 1,000 ML 999 ML IV CONT (13:58)
[2025-08-13] MEDS: MECLIZINE HCL 25 MG TABLET PO (13:59)
[2025-08-13] MEDS: ONDANSETRON INJ 4 MG/2 ML VIAL IV PUSH (13:59)
[2025-08-13 14:12] LABS: Hematocrit 40.2 % (37.0-47.0); Hemoglobin 12.9 g/dL (12.0-15.0); Immature Granulocyte Percent A 0.5 % (0-0.5); Lymphocytes Absolute Auto 1.89 K/mm3 (0.9-3.2); Mean Corpuscular HGB Conc 32.1 g/dl (32-36); Mean Corpuscular Hemoglobin 29.5 pg (26-34); Mean Corpuscular Volume 91.8 fl (80-100); Nucleated Red Blood Cells Absolute Auto 0.000 K/mm3 (0.0-0.012); Nucleated Red Blood Cells Perc 0.0 % (0.0-0.2); Platelet Count Result 233 k/mm3 (150-375); Red Blood Count 4.38 M/mm3 (4.2-5.4); White Blood Count 6.5 K/mm3 (4.5-10.0)
[2025-08-13 14:31] LABS: Alanine Aminotransferase 16 U/L (6-35); Albumin Level 4.2 g/dL (3.5-5.1); Alkaline Phosphatase 48 U/L (38-126); Anion Gap 5 mmol/L (4-12); Aspartate Amino Transferase 22 U/L (14-36); Bilirubin,Total 0.3 mg/dL (0.2-1.3); Blood Urea Nitrogen 9 mg/dL (7-17); Calcium 9.5 mg/dL (8.4-10.2); Carbon Dioxide 26 mmol/L (22-30); Chloride 108 mmol/L (98-107); Estimated Glomerular Filt Rate > 60; Glucose 91 mg/dL (65-110); Potassium 4.0 mmol/L (3.4-5.0); Sodium 139 mmol/L (137-145); Total Protein 7.2 g/dL (6.3-8.2)
[2025-08-13 16:14] LABS: Troponin I < 0.012 ng/mL (0.000-0.034)
--- OUTSIDE RECORDS SUMMARY | 2025-08-13 16:47 | XMS_ITS | Clinical Summary ---
Author Organization [facility] [place] [address] Address [address] [place] [id number] Care Team Providers Care Product Marketing Director Name Role Phone Claudette Rivera NP Primary Care Provider [phone] Allergies No known active allergies Medications varenicline [...] colonoscopy. She had a telehealth visit during [facility] and had bloodwork drawn, but there was [...] on file Legal Sex Female 8:57 PM [employer] Gender Identity Not on file Sexual Orientation [...] 2:08 AM CDT Performed at: 01 - [facility] [id number] Produce Associate: Christa Alvarez MD, Phone: [phone] Performed at: 02 - [facility] [id number] Produce Associate: Christa Alvarez MD, Phone: [phone] Specimen Comment: No. of containers..01 ThinPrep Vial Nelly Jordan NP LAB CYTOLOGY ORDERABLES Final [facility] - 01 LAB [place] 02 from Last 3 Months or Most Recently Relevant to Health Maintenance Care Teams Product Marketing Director Relationship Specialty Start Date End Date Claudette Rivera NP [address] [facility] [address] [place] [address] PCP - General Family Medicine 04/09/25
== END 2025-08-13 16:31 | disposition home or self-care (01) ==
PROVIDERS: Physician Assistant; Emergency Provider Emergency Medicine
DX: H81.10 Benign paroxysmal vertigo, unspecified ear (principal); F17.200 Nicotine dependence, unspecified, uncomplicated; R00.1 Bradycardia, unspecified; R94.31 Abnormal electrocardiogram [ECG] [EKG]
CPT/HCPCS: 36415; 70450; 80053; 84484; 85025; 93005; 96361; 96374; 99284; A9270; J2405; J7030